=== PATIENT | male | born 1950 | race Caucasian/White ===

== ENCOUNTER 2017-12-19 12:12 | Emergency (ER) | payer MEDICARE ==
[2017-12-19 13:11] VITALS: BP 122/77
--- NOTE | 2017-12-19 13:31 | UC ---
Ear Complaint HPI - HPI Summary HPI Summary: Ear pain on the left. he was scuba diving yesterday and had trouble equilibrating and then had pain and bleeding when can came to the surface. No fever or chills or congestion. - History of Current Complaint Chief Complaint: UCEar Stated Complaint: BILATERAL EAR COMPLAINT Time Seen by Provider: 12/19/17 13:15 Hx Obtained From: Patient Onset/Duration: Sudden Onset, Lasting Hours Severity Initially: Moderate Severity Currently: Moderate Pain Intensity: 0 Aggravating Factors: Nothing Alleviating Factors: Nothing Associated Signs/Symptoms: Positive: Discharge, Hearing Loss - Allergies/Home Medications Allergies/Adverse Reactions: Allergies Allergy/AdvReac Type Severity Reaction Status Date / Time No Known Allergies Allergy Verified 03/31/14 19:10 Home Medications: Home Medications Meloxicam [Mobic] 7.5 mg PO BID 12/19/17 [History Confirmed 12/19/17] Montelukast Sodium TAB* [Singulair 5 mg TAB*] 5 mg PO DAILY 12/19/17 [History Confirmed 12/19/17] PMH/Surg Hx/FS Hx/Imm Hx Previously Healthy: No - left rotator cuff injury from a fall. - Surgical History Surgical History: Yes Surgery Procedure, Year, and Place: T&A. APPENDECTOMY. ROTATOR CUFF. UMBILICAL HERNIA REPAIR. FINGER 2R SX - Family History Known Family History: Positive: Other - no related ear disease. - Social History Alcohol Use: Daily Alcohol Amount: 2-3 A DAY Substance Use Type: None Smoking Status (MU): Former Smoker When Did the Patient Quit Smoking/Using Tobacco: 35 YRS Review of Systems ENT: Ear Ache All Other Systems Reviewed And Are Negative: Yes Physical Exam Triage Information Reviewed: Yes Appearance: Well-Appearing, No Pain Distress, Well-Nourished Vital Signs: Initial Vital Signs Temp 98.5 F 12/19/17 13:01 Pulse 77 12/19/17 13:01 Resp 16 12/19/17 13:01 BP 122/77 12/19/17 13:01 Pulse Ox 98 12/19/17 13:01 Vital Signs Reviewed: Yes Eyes: Positive: Conjunctiva Clear ENT: Positive: Normal ENT inspection, Pharynx normal, Other - Left Tm rupture. Right tm bruising and redness. No effusion. Neck: Positive: Supple, Nontender, No Lymphadenopathy Respiratory: Positive: No accessory muscle use. Negative: Respiratory distress Cardiovascular: Positive: Brisk Capillary Refill Abdomen Description: Negative: Distended Musculoskeletal: Positive: Strength Intact, ROM Intact, No Edema Neurological: Positive: Alert, Muscle Tone Normal. Negative: Fatigued Psychological: Positive: Age Appropriate Behavior Skin: Negative: rashes Ear Complaint Course/Dx - Differential Dx/Diagnosis Provider Diagnoses: left tm rupture from scuba diving. Discharge - Sign-Out/Discharge Documenting (check all that apply): Patient Departure All imaging exams completed and their final reports reviewed: No Studies - Discharge Plan Condition: Good Disposition: HOME Patient Education Materials: Ruptured Eardrum (ED) Referrals: No Primary Care Phys,NOPCP [Primary Care Provider] - Ed Casper MD [Medical Doctor] - - Billing Disposition and Condition Condition: GOOD Disposition: Home
== END 2017-12-19 13:34 | disposition home or self-care (01) ==
LOC: UCCORT 12:12
DX: S09.22XA Traumatic rupture of left ear drum, initial encounter (principal); Y93.15 Activity, underwater diving and snorkeling; Y92.9 Unspecified place or not applicable; Z87.891 Personal history of nicotine dependence
CPT/HCPCS: 99201; G0463

== ENCOUNTER 2018-04-01 10:39 | Emergency (ER) | payer MEDICARE ==
[2018-04-01 11:36] VITALS: BP 111/74
--- NOTE | 2018-04-01 12:03 | UC ---
Skin Complaint HPI - HPI Summary HPI Summary: Pt presents with c/o bright red skin on bilateral anterior toes. Pt states he went on a 5 mile hike 1 week ago, and also began taking eliquis 1-2 weeks ago. Pt states that after hike, his skin on distal toes bilateral feet just below nail bed became bright red, very warm and shiny. Pt is concerned that this may be reaction to new medication eliquis. - History of Current Complaint Chief Complaint: UCSkin Time Seen by Provider: 04/01/18 11:46 Stated Complaint: TOES CONCERN - BILATERAL Hx Obtained From: Patient Onset/Duration: Sudden Onset, Lasting Days, Still Present Skin Exposure Onset/Duration: Days Ago Timing: Constant Onset Severity: Moderate Current Severity: Mild Pain Intensity: 0 Location: Discrete, Foot (Right), Foot (Left) Character: Pruritus, Redness, Painful Aggravating Factor(s): Touch Alleviating Factor(s): Nothing Associated Signs & Symptoms: Positive: Tenderness Related History: Other: - new medication and long distance walk - Allergy/Home Medications Allergies/Adverse Reactions: Allergies Allergy/AdvReac Type Severity Reaction Status Date / Time No Known Allergies Allergy Verified 04/01/18 11:28 Home Medications: Home Medications Apixaban* [Eliquis*] 5 mg PO BID 04/01/18 [History Confirmed 04/01/18] Losartan TAB* [Cozaar TAB*] 25 mg PO DAILY 04/01/18 [History Confirmed 04/01/18] Metoprolol Succinate XL TAB* [Toprol XL TAB*] 100 mg PO DAILY 04/01/18 [History Confirmed 04/01/18] PMH/Surg Hx/FS Hx/Imm Hx Previously Healthy: Yes Cardiovascular History: Atrial Fibrillation - Surgical History Surgical History: Yes Surgery Procedure, Year, and Place: T&A. APPENDECTOMY. ROTATOR CUFF. UMBILICAL HERNIA REPAIR. FINGER 2R SX - Family History Known Family History: Positive: Other - no related ear disease. - Social History Occupation: Retired Lives: With Family Alcohol Use: Daily Alcohol Amount: 2-3 A DAY beer Substance Use Type: None Smoking Status (MU): Former Smoker Have You Smoked in the Last Year: No When Did the Patient Quit Smoking/Using Tobacco: 40 YRS Review of Systems All Other Systems Reviewed And Are Negative: Yes Constitutional: Positive: Negative Skin: Positive: Rash Eyes: Positive: Negative ENT: Positive: Negative Respiratory: Positive: Negative Cardiovascular: Positive: Negative Gastrointestinal: Positive: Negative Genitourinary: Positive: Negative Motor: Positive: Negative Neurovascular: Positive: Negative Musculoskeletal: Positive: Myalgia - bilateral feet Neurological: Positive: Negative Psychological: Positive: Negative Is Patient Immunocompromised?: No Physical Exam Triage Information Reviewed: Yes Appearance: Well-Appearing Vital Signs: Initial Vital Signs Temp 97.7 F 04/01/18 11:30 Pulse 77 04/01/18 11:30 Resp 16 04/01/18 11:30 BP 111/74 04/01/18 11:30 Pulse Ox 99 04/01/18 11:30 Vital Signs Reviewed: Yes Eye Exam: Normal ENT Exam: Normal ENT: Positive: Hearing grossly normal Dental Exam: Normal Neck exam: Normal Respiratory: Positive: No respiratory distress Musculoskeletal Exam: Normal Musculoskeletal: Positive: Strength Intact Neurological Exam: Normal Neurological: Positive: Other: - soft sharp test on bialteral feet a few errors but overall pass Psychological Exam: Normal Skin Exam: Other - bilateral feet color mottled and cool/cold to touch. Distal anterior toes skin is bright red, shiny, non tender. skin otherwise no fungal infection, no sores other than bandaged blister on posterior right heel. Course/Dx - Differential Diagnoses - Skin Complaint Differential Diagnoses: Impetigo, Tinea - Diagnoses Provider Diagnosis: Frostbite of both feet, Cold extremities Discharge - Sign-Out/Discharge Documenting (check all that apply): Patient Departure All imaging exams completed and their final reports reviewed: No Studies - Discharge Plan Condition: Stable Disposition: HOME Patient Education Materials: Acute Wound Care (ED), Itchy Skin (ED) Referrals: [facility] [Outside] No Primary Care Phys,NOPCP [Primary Care Provider] - Additional Instructions: FOLLOW UP WITH YOUR PCP AND ANY SPECIALIST NEEDED. - Billing Disposition and Condition Condition: STABLE Disposition: Home
== END 2018-04-01 12:12 | disposition home or self-care (01) ==
LOC: UCCORT 10:39
DX: T33.832A Superficial frostbite of left toe(s), initial encounter (principal); T33.831A Superficial frostbite of right toe(s), initial encounter; X31.XXXA Exposure to excessive natural cold, initial encounter; Y93.01 Activity, walking, marching and hiking; Y92.9 Unspecified place or not applicable; I48.91 Unspecified atrial fibrillation; Z87.891 Personal history of nicotine dependence
CPT/HCPCS: 99211; G0463

== ENCOUNTER 2018-11-27 12:18 | Emergency (ER) | payer MEDICARE ==
[2018-11-27 13:04] VITALS: BP 131/85
--- NOTE | 2018-11-27 13:08 | UC ---
UC Dental HPI - HPI Summary HPI Summary: 68 year old male presents with complaint of left upper tooth pain and swelling for the past 2 days. States he is scheduled to have it pulled 12/23/18. He is on apixaban. - History of Current Complaint Chief Complaint: UCDentalProblem Stated Complaint: DENTAL Time Seen by Provider: 11/27/18 12:59 Hx Obtained From: Patient Onset/Duration: Sudden Onset, Lasting Days - 2 days Pain Intensity: 2 - Allergies/Home Medications Allergies/Adverse Reactions: Allergies Allergy/AdvReac Type Severity Reaction Status Date / Time No Known Allergies Allergy Verified 11/27/18 12:58 PMH/Surg Hx/FS Hx/Imm Hx Previously Healthy: Yes Cardiovascular History: Atrial Fibrillation Respiratory History: Asthma - Surgical History Surgical History: Yes Surgery Procedure, Year, and Place: T&A. APPENDECTOMY. ROTATOR CUFF. UMBILICAL HERNIA REPAIR. FINGER 2R SX - Family History Known Family History: Positive: Other - no related ear disease. - Social History Alcohol Use: Daily Alcohol Amount: 2-3 A DAY beer Substance Use Type: None Smoking Status (MU): Former Smoker Have You Smoked in the Last Year: No When Did the Patient Quit Smoking/Using Tobacco: 40 YRS Review of Systems All Other Systems Reviewed And Are Negative: Yes Constitutional: Negative: Fever, Chills, Fatigue Skin: Negative: Rash Eyes: Negative: Blurred Vision, Diplopia, Drainage, Eye Redness, Photophobia ENT: Positive: Dental Pain - told #13 per patient, left upper tooth.. Negative : Epistaxis Respiratory: Negative: Shortness Of Breath, Cough Cardiovascular: Negative: Palpitations, Chest Pain Gastrointestinal: Negative: Abdominal Pain, Vomiting, Diarrhea, Nausea Motor: Negative: Decreased ROM, Weakness Neurovascular: Negative: Decreased Sensation, Decreased Pulses Musculoskeletal: Negative: Decreased ROM Neurological: Negative: Headache, Weakness, Paresthesia, Numbness Is Patient Immunocompromised?: No Physical Exam Triage Information Reviewed: Yes Appearance: Well-Appearing, No Pain Distress Vital Signs: Initial Vital Signs Temp 98.8 F 11/27/18 12:58 Pulse 73 11/27/18 12:58 Resp 14 11/27/18 12:58 BP 131/85 11/27/18 12:58 Pulse Ox 100 11/27/18 12:58 Vital Signs Reviewed: Yes Eyes: Positive: Conjunctiva Clear ENT: Positive: TMs normal, Dental tenderness - left upper teeth. Negative: Nasal congestion, Nasal drainage, Tonsillar swelling, Tonsillar exudate Dental: Positive: Percussion Tenderness @ - left maxillary region, Abscess @ - left maxillary region Neck: Positive: Nontender, No Lymphadenopathy Respiratory: Positive: Lungs clear, Normal breath sounds. Negative: Crackles, Rhonchi, Wheezing Cardiovascular: Positive: RRR, No Murmur Abdomen Description: Positive: Nontender, Soft Musculoskeletal: Positive: ROM Intact Neurological: Positive: Alert Skin: Negative: Rashes Images Dental: 1 - #13, tooth involved Dental Complaint Course/Dx - Differential Dx/Diagnosis Differential Diagnosis/Dx: Dental Caries Provider Diagnosis: Dental abscess Discharge ED - Sign-Out/Discharge Documenting (check all that apply): Patient Departure All imaging exams completed and their final reports reviewed: No Studies - Discharge Plan Condition: Stable Disposition: HOME Prescriptions: Amoxicillin PO (*) [Amoxicillin 500 MG CAP*] 500 mg PO TID 10 Days #30 cap Patient Education Materials: Dental Abscess (ED) Referrals: No Primary Care Phys,NOPCP [Primary Care Provider] - Additional Instructions: Salt water gargles as needed. Start amoxicillin and take three times/day. Use Tylenol as needed for pain. Contact your dentist tomorrow. - Billing Disposition and Condition Condition: STABLE Disposition: Home
== END 2018-11-27 13:40 | disposition home or self-care (01) ==
LOC: UCCORT 12:18
DX: K04.7 Periapical abscess without sinus (principal); I48.91 Unspecified atrial fibrillation; Z79.01 Long term (current) use of anticoagulants; Z87.891 Personal history of nicotine dependence
CPT/HCPCS: 99212; G0463